=== PATIENT | female | born 1970 | race Caucasian/White ===

== ENCOUNTER 2020-08-23 07:24 | Outpatient (CLI) | payer BC, SELFPAY ==
--- NOTE | 2020-08-23 07:28 | MM_ITS ---
WS: [id number] SCREENING DIGITAL MAMMOGRAM WITH CAD HISTORY: SCREENING COMPARISON: 11/14/2018 and 09/27/2017 Bilateral CC and MLO views submitted. Computer aided detection analyzed. Breast composition: There are scattered areas of fibroglandular density. No suspicious masses, microc alcifications or architectural distortion. MM/[place] [id number] IMPRESSION: BI-RADS: 1-Negative FOLLOW UP: 1 Year Follow-up
== END 2020-08-23 07:25 | disposition home or self-care (01) ==
LOC: RADSHAW 07:25
PROVIDERS: PCP Family Medicine; Visit Provider Family Medicine
DX: Z12.31 Encounter for screening mammogram for malignant neoplasm of breast (principal)
CPT/HCPCS: 77067

== ENCOUNTER 2020-10-04 13:31 | Outpatient (CLI) | payer BC, SELFPAY ==
--- NOTE | 2020-10-04 13:36 | XR_ITS ---
WS: [id number] Cervical spine, AP, both obliques, odontoid view, lateral with flexion, extension and neutral positio ns, 10/04/2020 Clinical Data: RIGHT CERVICAL RADICULOPATHY Comparison: None. Findings: No compression fractures are seen. The disc heights are normal. There is no prevertebral so ft tissue swelling. The odontoid is unremarkable. The soft tissues of the neck and the lung apices ar e normal. No foraminal encroachment is seen. On flexion and extension there is no limitation of motio n or subluxation. XR/XR cervical spine min 6V [id number] Impression: 1. Negative cervical spine. 2. Negative oblique images of the cervical spine. 3. Negative for limitation of motion or subluxation on flexion or extension.
== END 2020-10-04 13:32 | disposition home or self-care (01) ==
LOC: RAD 13:33
PROVIDERS: PCP Family Medicine; Visit Provider Family Medicine
DX: M54.12 Radiculopathy, cervical region (principal)
CPT/HCPCS: 72052

== ENCOUNTER 2021-10-23 13:03 | Outpatient (CLI) | payer BC, SELFPAY ==
--- NOTE | 2021-10-23 13:15 | MM_ITS ---
WS: [id number] VIEWS: MLO and CC views both breasts. 3D digital tomosynthesis is also included in this exam. Comparison made with prior exam of . 08/23/2020. Findings: There was no sign of mass, architectural distortion or suspicious calcification in either breast. Sc attered fibroglandular densities MM/[place] [id number] Impression: BI-RADS: 2-Benign FOLLOW-UP: 1 Year Follow-up This mammogram was also analyzed by the Computer Aided Detection System [employer].
== END 2021-10-23 13:04 | disposition home or self-care (01) ==
LOC: RADSHAW 13:05
PROVIDERS: PCP Family Medicine; Visit Provider Family Medicine
DX: Z12.31 Encounter for screening mammogram for malignant neoplasm of breast (principal)
CPT/HCPCS: 77063; 77067

== ENCOUNTER → 2022-06-03 17:30 | Outpatient (BNVA) | payer BC, SELFPAY | PROVIDERS: PCP Family Medicine; Visit Provider Family Medicine | DX: N39.0 Urinary tract infection, site not specified (principal) | CPT/HCPCS: 81000 ==

== ENCOUNTER → 2022-06-09 08:10 | Outpatient (BNVA) | payer BC, SELFPAY | PROVIDERS: PCP Family Medicine; Visit Provider Family Medicine | DX: R17 Unspecified jaundice (principal) | CPT/HCPCS: 80053; 81000; 85025 ==

== ENCOUNTER → 2022-06-15 10:49 | Outpatient (BNVA) | payer BC, SELFPAY | PROVIDERS: PCP Family Medicine; Visit Provider Family Medicine | DX: R74.01 Elevation of levels of liver transaminase levels (principal); Z51.81 Encounter for therapeutic drug level monitoring | CPT/HCPCS: 80053; 80074; 86664; 86665 ==

== ENCOUNTER 2022-07-13 10:56 | Oncology outpatient (recurring) (ONCR) | payer BC, SELFPAY ==
[2022-07-13 12:31] LABS: Basophils % 0.5 %; Hematocrit 37.3 % (37.0-47.0); Hemoglobin 12.2 g/dL (11.5-15.3); Lymphocytes % 32.2 %; Mean Corpuscular HGB Conc 32.7 g/dL (30.0-36.0); Mean Corpuscular Hemoglobin 28.9 pg (28.0-34.0); Mean Corpuscular Volume 88.4 fl (81-99); Mean Platelet Volume 9.6 fL (7.4-10.4); Monocytes # 0.4 10^3/uL (0.2-0.9); Monocytes % 6.4 %; Neutrophils # 3.79 10^3/uL (1.8-7.7); Neutrophils % 60.6 %; Nucleated Red Blood Cells % 0 %; Platelet Count 263 10^3/cmm (130-400); Red Blood Count 4.22 10^6/uL (4.1-5.3); Red Cell Distribution Width 12.2 % (12.1-15.1); White Blood Count 6.3 10^3/uL (4.0-10.0)
[2022-07-13 12:32] LABS: Erythrocyte Sedimentation Rate 4 mm/hr (0-15)
[2022-07-13 12:43] LABS: LAB Peripheral Smear Sent for Review
[2022-07-13 14:52] LABS: Alanine Aminotransferase 17 U/L (0-33); Alkaline Phosphatase 86 U/L (35-105); Aspartate Amino Transferase 18 U/L (0-32); Blood Urea Nitrogen 10 mg/dL (6-20); Calcium 9.2 mg/dL (8.5-10.5); Carbon Dioxide 26 mmol/L (22-29); Chloride 101 mmol/L (98-107); Glucose 88 mg/dL (65-115); Iron 84 ug/dL (37-145); Lactate Dehydrogenase 191 U/L (135-214); Osmolality Calculated 272 mOsm/kg (285-295); Percent Saturation 27.3 % (20-50); Sodium 132 mmol/L (136-145); Thyroid Stimulating Hormone 1.84 uIU/mL (0.27-4.20); Total Bilirubin 0.3 mg/dL (0.15-1.2); Total Iron Binding Capacity 307 mcg/dl; Unsaturated Iron Binding 223 ug/dL (112-347); Vitamin B12 350 pg/mL (232-1245)
== END 2022-07-25 23:59 | disposition home or self-care (01) ==
LOC: ONCMED 10:57
PROVIDERS: PCP Family Medicine; Visit Provider Internal Medicine Medical Oncology
DX: R91.1 Solitary pulmonary nodule (principal); R93.5 Abnormal findings on diagnostic imaging of other abdominal regions, including retroperitoneum; Z86.16 Personal history of COVID-19
CPT/HCPCS: 36415; 80053; 82607; 83540; 83550; 83615; 84443; 85025; 85651; 86140

== ENCOUNTER → 2022-08-03 13:45 | Outpatient (BNVA) | payer BC, OTHER, SELFPAY | PROVIDERS: PCP Family Medicine; Visit Provider Family Medicine | DX: R53.83 Other fatigue (principal); D64.9 Anemia, unspecified; Z20.5 Contact with and (suspected) exposure to viral hepatitis | CPT/HCPCS: 86705; 86706; 86709; 86803; 87340 ==

== ENCOUNTER 2022-08-18 09:14 | Outpatient (CLI) | payer BC, OTHER, SELFPAY ==
[2022-08-18] MEDS: iohexol 350 mg/mL 500 mL Btl (per mL) IV (10:15)
[2022-08-18] MEDS: iohexol 350 mg/mL 500 mL Btl (per mL) PO (10:16)
--- NOTE | 2022-08-18 10:30 | CT_ITS ---
WS: [id number] CT CHEST, ABDOMEN, AND PELVIS TECHNIQUE: Contrast-enhanced CT of the chest, abdomen, and pelvis with coronal and sagittal reformatt ed images. CLINICAL INFORMATION: Follow-up for abnormal CT findings COMPARISON: CT chest and CT abdomen pelvis 2019 DLP: 1056.[address] scans at [facility] use at least one of these dose optimization techniques: automated e xposure control; mA and/or kV adjustment per patient size (includes targeted exams where dose is matc hed to clinical indication); or iterative reconstruction. CT CHEST: Again seen are multiple bilateral subcentimeter pulmonary nodules stable compared to 2019. No acute p ulmonary infiltrates. No focal pneumonia or pleural fluid. Normal caliber thoracic aorta. Proximal ma in pulmonary arteries are normal. No mediastinal or hilar lymphadenopathy. No axillary lymphadenopath y. Normal thoracic spine. Fibrosis in the lung apices. A few scattered calcified granulomas. Subpleural nodule LEFT lower lobe measuring 5 mm is unchanged. 6.8 mm nodule RIGHT upper lobe laterally is unchanged. No other suspici ous findings. CT ABDOMEN AND PELVIS: Diffuse fatty infiltration liver. Hepatomegaly. Normal spleen. Small esophageal hiatal hernia. Adren al glands are normal. Normal renal parenchymal enhancement. Normal portal vein and splenic vein. Stab le RIGHT extrarenal pelvis is unchanged. Normal caliber abdominal aorta. Celiac and SMA are patent. Sigmoid diverticulosis. No evidence of acu te diverticulitis. No evidence of high-grade small or large bowel obstruction. Fat-containing umbilic al hernia. Induration in the central mesentery with a few prominent lymph nodes can be seen with scle rosing mesenteritis and has been associated with lymphoma. This unchanged from 2018 CT/CT chest abd pel w con* IMPRESSION: 1. Hepatomegaly with diffuse fatty infiltration liver. 2. Prior hysterectomy. 3. Stable RIGHT extrarenal pelvis unchanged. 4. Sigmoid diverticulosis. 5. Persistent babatunde mesentery with associated small lymph nodes unchanged. T his can be seen with sclerosing mesenteritis and has been associated with lymph justin. This is unchanged since 2018. Recommend continued surveillance. 6. Subpleural nodule LEFT lower lobe measuring 5 mm is unchanged. 6.8 mm nodul e RIGHT upper lobe laterally is unchanged.
== END 2022-08-18 09:15 | disposition home or self-care (01) ==
PROVIDERS: PCP Family Medicine; Visit Provider Internal Medicine Medical Oncology
DX: R91.8 Other nonspecific abnormal finding of lung field (principal); R93.5 Abnormal findings on diagnostic imaging of other abdominal regions, including retroperitoneum; R16.0 Hepatomegaly, not elsewhere classified; K76.0 Fatty (change of) liver, not elsewhere classified; Z90.710 Acquired absence of both cervix and uterus; K57.30 Diverticulosis of large intestine without perforation or abscess without bleeding; R91.1 Solitary pulmonary nodule
CPT/HCPCS: 71260; 74177; Q9967

== ENCOUNTER → 2022-09-11 07:55 | Outpatient (BNVA) | payer BC, SELFPAY | PROVIDERS: PCP Family Medicine; Visit Provider Family Medicine | DX: Z51.81 Encounter for therapeutic drug level monitoring (principal); Z13.1 Encounter for screening for diabetes mellitus; Z13.220 Encounter for screening for lipoid disorders | CPT/HCPCS: 80053; 80061; 83036; 83735; 85025 ==

== ENCOUNTER 2022-09-21 10:29 | Oncology outpatient (recurring) (ONCR) | payer BC, SELFPAY | END 2022-09-22 23:59 | disposition home or self-care (01) | LOC: ONCMED 10:29 | PROVIDERS: PCP Family Medicine; Visit Provider Internal Medicine Medical Oncology | DX: R91.8 Other nonspecific abnormal finding of lung field; R93.5 Abnormal findings on diagnostic imaging of other abdominal regions, including retroperitoneum ==

== ENCOUNTER 2022-11-02 07:22 | Outpatient (CLI) | payer BC, SELFPAY ==
--- NOTE | 2022-11-02 07:30 | MM_ITS ---
WS: [id number] SCREENING DIGITAL TOMOSYNTHESIS MAMMOGRAM WITH CAD HISTORY: Screening mammogram COMPARISON: 10/23/2021 and 08/23/2020 Bilateral CC and MLO with tomosynthesis views submitted. Synthetic mammography reviewed. Computer aid ed detection analyzed. Breast composition: There are scattered areas of fibroglandular density. No suspicious masses, microc alcifications or architectural distortion. MM/[place] [id number] IMPRESSION: BI-RADS: 1-Negative FOLLOW UP: 1 Year Follow-up
== END 2022-11-02 07:23 | disposition home or self-care (01) ==
PROVIDERS: PCP Family Medicine; Visit Provider Family Medicine
DX: Z12.31 Encounter for screening mammogram for malignant neoplasm of breast (principal)
CPT/HCPCS: 77063; 77067

== ENCOUNTER → 2023-09-07 13:42 | Outpatient (BNVA) | payer BC, SELFPAY | PROVIDERS: PCP Family Medicine; Visit Provider Family Medicine | DX: Z51.81 Encounter for therapeutic drug level monitoring (principal); Z13.220 Encounter for screening for lipoid disorders; E55.9 Vitamin D deficiency, unspecified; R91.8 Other nonspecific abnormal finding of lung field; E53.8 Deficiency of other specified B group vitamins | CPT/HCPCS: 80053; 80061; 82306; 82607; 85025; 86141 ==

== ENCOUNTER → 2023-10-25 16:36 | Outpatient (BNVA) | payer BC, SELFPAY | PROVIDERS: PCP Family Medicine; Visit Provider Family Medicine | DX: R30.0 Dysuria (principal); N39.0 Urinary tract infection, site not specified; J06.9 Acute upper respiratory infection, unspecified | CPT/HCPCS: 81000; 87077; 87086; 87184 ==

== ENCOUNTER 2023-11-05 07:24 | Outpatient (CLI) | payer BC, SELFPAY ==
--- NOTE | 2023-11-05 07:30 | MM_ITS ---
WS: [id number] BILATERAL SCREENING DIGITAL TOMOSYNTHESIS MAMMOGRAM WITH CAD HISTORY: Screening COMPARISON: 11/02/2022, 10/23/2021 and 08/23/2020 Bilateral CC and MLO views with tomosynthesis and synthetic mammography submitted. Computer aided det ection analyzed. Breast composition: There are scattered areas of fibroglandular density. No suspicious masses, microc alcifications or architectural distortion. No change in the overall pattern of each breast. IMPRESSION: MM/[place] [id number] BI-RADS: 2-Benign FOLLOW UP: 1 Year Follow-up
== END 2023-11-05 07:25 | disposition home or self-care (01) ==
LOC: RAD 07:24
PROVIDERS: PCP Family Medicine; Visit Provider Family Medicine
DX: Z12.31 Encounter for screening mammogram for malignant neoplasm of breast (principal)
CPT/HCPCS: 77063; 77067

== ENCOUNTER 2024-09-19 13:21 | Outpatient (CLI) | payer BC, SELFPAY ==
--- NOTE | 2024-09-19 13:29 | XRR_ITS ---
PROCEDURE INFORMATION: Exam: XR Thoracic Spine Exam date and time: 09/19/2024 1:43 PM Age: 54 years old Clinical indication: Injury or trauma; Fall; Blunt trauma (contusions or hematomas); Injury date: 1 week ago; Injury details: Fell on ice 1 wk ago, left sided rib and mid back pain since; Additional info: Thoracic back pain TECHNIQUE: Imaging protocol: Radiologic exam of the thoracic spine. Views: 3 views. COMPARISON: CR XR ribs LT 2V* [id number] 09/19/2024 1:43 PM FINDINGS: Bones/joints: Mild superior endplate compression deformity in the upper thoracic spine (suspect T4). Mild multilevel degenerative change. Soft tissues: No soft tissue abnormality. XR/XR thoracic spine 3V* [id number] IMPRESSION: Mild superior endplate compression deformity in the upper thoracic spine (suspect T4). Consider CT or MRI for complete evaluation according to clinical discretion.
--- NOTE | 2024-09-19 13:29 | XRR_ITS ---
PROCEDURE INFORMATION: Exam: XR Left Ribs Exam date and time: 09/19/2024 1:43 PM Age: 54 years old Clinical indication: Injury or trauma; Fall; Rib area, left side; Blunt trauma; Injury date: 1 week ago; Injury details: Fell on ice 1 wk ago, left sided rib and mid back pain since; Additional info: Back pain over the left ribs below the scapula after fall TECHNIQUE: Imaging protocol: Radiologic exam of the left ribs. Views: 2 views. COMPARISON: CR XR ribs LT 2V* [id number] 01/09/2019 3:56 PM FINDINGS: Bones/joints: No appreciable fracture.. Lungs: The lungs are clear. Pleural spaces: No pneumothorax or pleural effusion. Heart/Mediastinum: Cardiomediastinal silhouette is unremarkable. Soft tissues: Normal. XR/XR ribs LT 2V* [id number] IMPRESSION: 1. No acute cardiopulmonary abnormality. 2. No appreciable osseous fracture.
== END 2024-09-19 13:22 | disposition home or self-care (01) ==
PROVIDERS: PCP Family Medicine; Visit Provider Family Medicine
DX: M54.6 Pain in thoracic spine (principal); W00.9XXA Unspecified fall due to ice and snow, initial encounter; R93.7 Abnormal findings on diagnostic imaging of other parts of musculoskeletal system; M47.894 Other spondylosis, thoracic region
CPT/HCPCS: 71100; 72072

== ENCOUNTER 2024-10-09 14:23 | Outpatient (CLI) | payer BC, SELFPAY ==
--- NOTE | 2024-10-09 14:30 | XR_ITS ---
WS: [email or web address] SCREENING DEXA SCAN [employer] CLINICAL INFORMATION: Compression fracture COMPARISON: None. FINDINGS: The L1-L4 bone mineral density measures 1.021 g/cm2. This corresponds to a T score score of -1.3 and Z score of -1.3. Left femoral neck bone mineral density measures 0.845 g/cm2. This corresponds to a T score of -1.3 and Z score of -1.2. Right femoral neck bone mineral density measures 0.866 g/cm2. This corresponds to a T score -1.1of and Z score of -1.1. Mean femoral neck bone mineral density measures 0.856 g/cm2. This corresponds to a T score of -1.2 and Z score of -1.1. XR/XR DEXA axial skeleton* [id number] IMPRESSION: Osteopenia lumbar spine. Osteopenia femoral necks. Patient's FRAX calculated 10 year probability for major osteoporotic fracture i s 12.8% and osteoporotic hip fracture is 1.6%.
--- NOTE | 2024-10-09 15:00 | CT_ITS ---
WS: [id number] CT THORACIC SPINE HISTORY: Compression fracture T4 TECHNIQUE: Contiguous 2.5 mm axial images are reviewed to thoracic spine. Images are reformatted in sagittal and coronal planes. All CT scans at [facility] use at least one of these dose optimization techniques: automated exposure control; mA and/or kV adjustment per patient size (includes targeted exams where dose is matched to clinical indication); or iterative reconstruction. DLP: 455.21 mGy.cm COMPARISON: Radiograph 09/19/2024 Mild increase in thoracic kyphosis with osteopenia. Anterior wedging of T6. Compression fracture of approximately 20% with very slight bowing of the posterior vertebral body cortex. Asymmetric loss of height in the coronal plane. Slightly greater loss of height on the LEFT as compared to the RIGHT. This fracture was also identified on 09/19/2024 without significant progression as compared to the radiograph. T1-2: Normal. T2-3: Normal. T3-4: Normal. T4-5: Normal. T5-6: Slight posterior bowing of the T6 vertebral body by 2 to 3 mm. Very slight contact on the ventral thecal sac. No stenosis. T6-7: Normal. T7-8: Normal. T8-9: Normal. T9-10: Normal. T10-11: Normal. T11-12: Normal. Stable 5 mm in pleural nodule at the LEFT lung base. CT/CT thoracic spin wo con* [id number] IMPRESSION: 1. T6, 20% compression fracture with slight posterior bowing by 2 to 3 mm of the posterior vertebral body. No progression of fracture since 09/19/2024. 2. Mild osteopenia. 3. No high-grade central or foraminal stenosis.
== END 2024-10-09 14:24 | disposition home or self-care (01) ==
LOC: RAD 14:25
PROVIDERS: PCP Family Medicine; Visit Provider Family Medicine
DX: Z78.0 Asymptomatic menopausal state (principal); S22.050A Wedge compression fracture of T5-T6 vertebra, initial encounter for closed fracture; X58.XXXA Exposure to other specified factors, initial encounter; M85.89 Other specified disorders of bone density and structure, multiple sites; M40.294 Other kyphosis, thoracic region; J94.8 Other specified pleural conditions
CPT/HCPCS: 72128; 77080

== ENCOUNTER → 2024-10-19 13:13 | Outpatient (BNVA) | payer BC, SELFPAY | PROVIDERS: PCP Family Medicine; Visit Provider Orthopaedic Surgery | DX: M54.9 Dorsalgia, unspecified (principal); S22.040A Wedge compression fracture of fourth thoracic vertebra, initial encounter for closed fracture; X58.XXXA Exposure to other specified factors, initial encounter | CPT/HCPCS: 72072 ==

== ENCOUNTER 2024-10-25 12:51 | Outpatient (CLI) | payer BC, SELFPAY ==
--- NOTE | 2024-10-25 13:00 | MR_ITS ---
WS: [id number] MRI THORACIC SPINE WITHOUT CONTRAST TECHNIQUE: Sagittal T1, T2 and STIR imaging. Axial T2 imaging. Noncontrast imaging obtained. CLINICAL INFORMATION: Back pain COMPARISON: None. FINDINGS: Moderate thoracic kyphosis. Acute compression fracture T6 vertebral body with anterior wedging. Loss of approximately 50% vertebral body height. Fracture cleft in the superior endplate with diffuse edema compatible with acute compression. Edema extends into the pedicles bilaterally. Small amount of edema in the paravertebral soft tissues. Small amount of edema in the spinous process. Cord signal is normal. No evidence of cord contusion. No epidural blood products. Slight cortical expansion with T2 signal abnormality involving the posterior aspect of T6 extending into the LEFT pedicle suspicious for an underlying lesion. This may represent pathologic fracture. The adrenal glands are normal. RIGHT renal cyst measuring 4.2 cm. Small LEFT renal cyst. MR/MR thoracic spin wo con* [id number] IMPRESSION: 1. Acute compression fracture T6 vertebral body with anterior wedging and diff use edema. Minimal retropulsion of the posterior cortex without significant srikanth tral canal stenosis. 2. T2 signal abnormality involving the LEFT posterior T6 vertebral body extend ing into the pedicle with mild cortical expansion may represent an underlying l esion with pathologic fracture. This could be biopsied if kyphoplasty performed . Bone scan may be helpful in further evaluation to assess for any abnormal are as of bony uptake 3. Cord signal is normal. 4. No other acute findings.
== END 2024-10-25 12:52 | disposition home or self-care (01) ==
PROVIDERS: PCP Family Medicine; Visit Provider Orthopaedic Surgery
DX: S22.050A Wedge compression fracture of T5-T6 vertebra, initial encounter for closed fracture (principal); X58.XXXA Exposure to other specified factors, initial encounter; R93.7 Abnormal findings on diagnostic imaging of other parts of musculoskeletal system; M40.294 Other kyphosis, thoracic region; N28.1 Cyst of kidney, acquired
CPT/HCPCS: 72146

== ENCOUNTER → 2024-11-02 13:52 | Outpatient (BNVA) | payer BC, SELFPAY | PROVIDERS: PCP Family Medicine; Visit Provider Orthopaedic Surgery | DX: S22.050A Wedge compression fracture of T5-T6 vertebra, initial encounter for closed fracture (principal); X58.XXXA Exposure to other specified factors, initial encounter | CPT/HCPCS: 36415; 80053; 81001; 85025 ==

== ENCOUNTER 2024-11-08 06:03 | Day surgery (SDC) | payer BC, SELFPAY ==
[2024-11-08] VITALS (11 sets, daily range): BP systolic 112–133; BP diastolic 60–84; PULSE 68–90; RESP 16–18; TEMP 36.1–37.1; O2SAT 95–100; BMI 26.6
--- NOTE | 2024-11-08 06:14 | SC_ITS ---
WS: [id number] C-arm fluoroscopy for thoracic kyphoplasty, 11/08/2024 Clinical Data: Surgery Comparison: Thoracic spine, 10/19/2024 Findings: Dr. Green performed thoracic kyphoplasty SC/C-arm FL for Kyphoplasty Impression: Thoracic kyphoplasty.
[2024-11-08] MEDS: sodium chloride 0.9% 1,000 ML 30 ML IV (06:46)
--- NOTE | 2024-11-08 06:50 | W.PM.OPSUD ---
Surgery/Procedure H&P Update DATE OF PROCEDURE: November 08, 2024 DATE H&P PERFORMED: 11/02/24 H&P UPDATE INFORMATION: I have reviewed H&P completed within last 30 days, I have examined patient prior to procedure and No changes to prior documentation PREOP DIAGNOSIS: T6 pathologic wedge compression fracture PLANNED PROCEDURE: Operation Date: 11/08/24 08:00 Proposed Procedures p Kyphoplasty(Not Applicable) - Dylan Green DO
[2024-11-08] MEDS: ondansetron 2 mg/ML SDV 2 mL 4 MG IVP (06:56)
[2024-11-08] MEDS: scopolamine 1 mg PATCH 1 PATCH TRANSDERMA (06:56)
[2024-11-08] MEDS: diphenhydrAMINE 50 mg/mL SDV 1mL 12.5 MG IVP (07:02)
--- NOTE | 2024-11-08 07:41 | P.ANESASSM_ITS ---
Pre-Anesthetic Assessment Height/Weight: Height 1.75 m Weight 81.647 kg Temp Pulse Resp BP Pulse Ox O2 Del Method 98.7 F 85 18 128/84 99 Room Air 11/08/24 06:26 11/08/24 06:26 11/08/24 06:26 11/08/24 06:56 11/08/24 06:26 11/08/24 06:26 Preop Diagnosis: T6 pathologic wedge compression fracture Operation Date: 11/08/24 08:00 Proposed Procedures p Kyphoplasty(Not Applicable) - Dylan Green DO Familial anesthetic complications: None Was Beta Toni taken within 24 hours: N/A Was Clonidine taken within 24 hours: N/A Last intake: Intake Last Liquid Date 11/07/24 Last Liquid Time 21:00 Last Solid Date 11/07/24 Last Solid Time 21:00 Social No alcohol and No tobacco Exam alert, oriented x 3, clear to auscultation bilaterally and regular rate & rhythm Airway Submandibular: within normal limits Cervical ROM: within normal limits Mallampati: Class I Dentition: full GI Gastroesophageal Reflux Disease Anesthetic Plan ASA status: 2 Anesthesia: General Medications/Allergies Home Medications ?Medication ?Instructions ?Recorded ?Confirmed ?Last Taken ?Type cholecalciferol (vitamin D3) 50 50 mcg PO DAILY #90 ca ps 05/10/24 11/03/24 11/07/24 Rx mcg (2,000 unit) capsule citalopram 10 mg tablet 10 mg PO DAILY #90 tabs 04/2511/03/24 11/08/24 05:45 Rx cyanocobalamin (vitamin B-12) 1,000 mcg PO DAILY #30 t abs 05/10/24 11/03/24 11/07/24 Rx 1,000 mcg tablet (Vitamin B-12) omeprazole 40 mg capsule,delayed 40 mg PO DAILY #90 ca ps 05/10/24 11/03/24 11/08/24 05:45 Rx release alendronate 70 mg tablet (Fosamax) 70 mg PO .Once a we ek #12 tabs 10/17/24 11/08/24 2 Weeks Ago Rx ~10/25/24 cyclobenzaprine 10 mg tablet 10 mg PO TID PRN muscle s pasm #30 10/26/24 11/03/24 11/07/24 Rx tabs naproxen 500 mg tablet 500 mg PO BID PRN pain #60 t abs 10/26/24 11/03/24 11/02/24 Rx tramadol 50 mg tablet 50 mg PO BID PRN pain #30 ta bs 10/26/24 11/03/24 11/07/24 Rx Allergies Allergy/AdvReac Type Severity Reaction Status Date / Time azithromycin AdvReac hives Verified 11/08/24 06:45 bactrim Allergy Intermediate Unknown Uncoded 11/08/24 06:45 Current Medications Generic Name Dose Route Start Last Admin Trade Name Freq PRN Reason Stop Dose Admin Sodium Chloride 1,000 mls @ 30 mls/hr 11/08/24 06:15 11/08/24 06:46 Sodium Chloride 0.9% IV 11/09/24 06:14 30 mls/hr .Q24H KEVIN Administration Ondansetron HCl 4 mg 11/08/24 06:14 11/08/24 06:56 Ondansetron 2 Mg/Ml Sdv 2 Ml IVP 4 mg Q5M PRN Administration NAUSEA AND VOMITING PFSH Anesthesia Medical History Anemia Surgical History History of hysterectomy with bilateral oophorectomy (2015) Laparoscopic-assisted vaginal hysterectomy/bilateral salpingo-oophorectomy History of hysteroscopy (2015) Hysteroscopy, thermal ablation of the uterus, D&C, and colporrhaphy Family History Other CAD (coronary artery disease) Cancer Diabetes Hypertension Lung disease Psychiatric illness Suicide Denies family history of Clotting disorder Dementia Hyperlipidemia Chronic kidney disease (CKD) Anesthesia complication Bleeding disorder Stroke Social History Smoking and tobacco/nicotine status: unknown if used tobacco/nicotine Alcohol intake: never Substance/Drug Use: never Current occupation: Working at [employer] Anesthesia Cardiac Studies: No Data to Display
[2024-11-08] MEDS: ceFAZolin 2,000 mg SDV 2000 MG IVP (08:23)
[2024-11-08] MEDS: lidocaine-epi 1% 20 mL INJ INJECTION (09:07)
[2024-11-08] MEDS: iohexol 300 mg/mL 50 mL Btl XX (09:08)
--- NOTE | 2024-11-08 09:11 | PM.OP ---
Operative Report Date of procedure: November 08, 2024 Pre-op diagnosis: T6 pathologic wedge osteoporotic compression fracture Post-op diagnosis: same Procedure done: T6 kyphoplasty T6 biopsy Surgeon: Dylan Green DO Estimated blood loss (mL): 5 Procedure: T6 kyphoplasty T6 biopsy Patient brought the op suite after an Gonasi was placed in the prone position. All areas impingement well-padded. Patient's prepped draped also fashion. Skin incisions made over the left pedicle of T6. This was confirmed under C-arm guidance by plain fluoroscopy. The awl was inserted into the left pedicle. Then the biopsy was taken. This was done with a biopsy tube had a good core bone. Next the drill was inserted followed by the balloon. Balloon was inflated deflated. And then the cement was injected. Cement had good fill across the vertebral body. Wounds irrigated and closed with nylon suture. Sterile dressings were applied and patient is transferred to the PACU in stable addition.
--- NOTE | 2024-11-08 14:13 | ANE.PACU2 ---
Inpatient post-anesthesia follow up: Airway intact: Yes Vital signs: Temperature 97.0 F Pulse Rate 70 Respiratory Rate 18 Blood Pressure 119/74 Pulse Oximetry 100 Oxygen Delivery Me thod Room Air Oxygen Flow Rate Fraction of Inspir ed Oxygen Hydration adequate: Yes Nausea and vomiting: No Pain level: 2 Mental status: Baseline
== END 2024-11-08 10:28 | disposition home or self-care (01) ==
PROVIDERS: PCP Family Medicine; Visit Provider Orthopaedic Surgery
PROC: (CPT 22513; principal; 2024-11-08 08:00)
DX: M80.08XA Age-related osteoporosis with current pathological fracture, vertebra(e), initial encounter for fracture (principal); K21.9 Gastro-esophageal reflux disease without esophagitis; Z79.899 Other long term (current) drug therapy
CPT/HCPCS: 22513; 76000; 88307; 88311; A4216; J0690; J1200; J2250; J2405; J2704; J3010; J7030; J9999; Q9967

== ENCOUNTER → 2024-11-23 15:05 | Outpatient (BNVA) | payer BC, SELFPAY | PROVIDERS: PCP Family Medicine; Visit Provider Orthopaedic Surgery | DX: S22.040D Wedge compression fracture of fourth thoracic vertebra, subsequent encounter for fracture with routine healing (principal); X58.XXXD Exposure to other specified factors, subsequent encounter | CPT/HCPCS: 72072 ==

== ENCOUNTER → 2025-03-29 14:05 | Outpatient (BNVA) | payer BC, SELFPAY | PROVIDERS: PCP Family Medicine; Visit Provider Orthopaedic Surgery | DX: S22.050 Wedge compression fracture of T5-T6 vertebra (principal); X58.XXXD Exposure to other specified factors, subsequent encounter | CPT/HCPCS: 72072 ==

== ENCOUNTER 2025-04-12 14:19 | Outpatient (CLI) | payer BC, SELFPAY ==
--- NOTE | 2025-04-12 14:30 | MR_ITS ---
WS: [id number] MRI THORACIC SPINE WITHOUT CONTRAST TECHNIQUE: Sagittal T1, T2 and STIR imaging. Axial T2 imaging. Noncontrast imaging obtained. CLINICAL INFORMATION: Back Pain COMPARISON: MRI 10/25/2024 FINDINGS: Moderate thoracic kyphosis. Chronic compression kyphoplasty changes at T6. Minimal retropulsion of the posterior cortex with slight effacement of the ventral thecal sac with slight indentation on the thoracic cord. Spinal canal remains patent. No acute appearing compression fractures. Mild RIGHT T10-11 bony foraminal narrowing. Moderate facet arthropathy lower thoracic spine. Normal caliber thoracic aorta. Adrenal glands are normal. Small partially visualized renal cysts. MR/MR thoracic spin wo con* [id number] IMPRESSION: 1. Chronic compression kyphoplasty changes at T6. Minimal retropulsion of the posterior cortex 2. No acute compression fractures. 3. Mild RIGHT T10-11 bony foraminal narrowing.
== END 2025-04-12 14:20 | disposition home or self-care (01) ==
LOC: RAD 14:21
PROVIDERS: PCP Family Medicine; Visit Provider Orthopaedic Surgery
DX: S22.050 Wedge compression fracture of T5-T6 vertebra (principal); M40.294 Other kyphosis, thoracic region; M48.04 Spinal stenosis, thoracic region; Y99.9 Unspecified external cause status
CPT/HCPCS: 72146

== ENCOUNTER → 2025-06-12 07:47 | Outpatient (BNVA) | payer BC, SELFPAY | PROVIDERS: PCP Family Medicine; Visit Provider Family Medicine | DX: Z00.00 Encounter for general adult medical examination without abnormal findings (principal); E53.8 Deficiency of other specified B group vitamins; M62.838 Other muscle spasm; Z13.6 Encounter for screening for cardiovascular disorders; Z51.81 Encounter for therapeutic drug level monitoring; E55.9 Vitamin D deficiency, unspecified | CPT/HCPCS: 80053; 80061; 82306; 82607; 83735; 85025 ==

== ENCOUNTER 2025-06-28 12:58 | Outpatient (CLI) | payer BC, SELFPAY ==
--- NOTE | 2025-06-28 13:00 | MM_ITS ---
WS: [id number] BILATERAL SCREENING DIGITAL TOMOSYNTHESIS MAMMOGRAM WITH CAD HISTORY: Screening COMPARISON: 11/05/2023, 11/02/2022 Bilateral CC and MLO views with tomosynthesis and synthetic mammography submitted. Computer aided detection analyzed. Breast composition: There are scattered areas of fibroglandular density. No suspicious masses, microcalcifications or architectural distortion. Benign appearing calcifications in the upper outer quadrant of the RIGHT breast. Bilateral arterial calcifications. MM/MM scr tomosynthesis [id number] IMPRESSION: BI-RADS: 2 - Benign. FOLLOW UP: 1 Year Follow-up
== END 2025-06-28 12:59 | disposition home or self-care (01) ==
LOC: RAD 12:58
PROVIDERS: PCP Family Medicine; Visit Provider Family Medicine
DX: Z12.31 Encounter for screening mammogram for malignant neoplasm of breast (principal); Z00.00 Encounter for general adult medical examination without abnormal findings; R92.323 Mammographic fibroglandular density, bilateral breasts; R92.1 Mammographic calcification found on diagnostic imaging of breast
CPT/HCPCS: 77063; 77067